=== PATIENT | male | born 1945 | race Caucasian/White ===

== ENCOUNTER 2019-03-21 09:32 | Day surgery (SDC) | payer BC ==
[2019-03-21] MEDS ORDERED: Depo-Medrol 40 MG/ML IM ONE (09:33)
[2019-03-21] MEDS ORDERED: Sodium Chloride 0.9(Preservative Free) 10 ML IJ ONE (09:33)
[2019-03-21] MEDS ORDERED: DIPRIVAN 200 MG/20 ML IV ONE (10:52)
[2019-03-21] MEDS ORDERED: Ketamine HCl 50 MG/ML ONE (10:52)
--- NOTE | 2019-03-21 12:32 | XRAY ---
Indication: Left L3-S1 transforaminal GIOVANI. Intraoperative fluoroscopy was provided for 29 seconds. 2 digital spot images submitted for interpretation demonstrates posterior needle tips projecting over the expected course of the left L4-L5 nerve roots. Small amount of contrast injected for needle tip placement. Correlate with intraoperative findings/report.
--- NOTE | 2019-03-21 12:36 | XRAY ---
29 seconds fluoroscopy time in surgery for left L4-S1 GIOVANI.
[2019-03-21] MEDS ORDERED: Lactated Ringers 1,000 ML IV ONE (13:26)
== END 2019-03-21 11:21 | disposition home or self-care (01) ==
LOC: SDC-PAIN 09:32
PROVIDERS: ATTEND Psychiatry & Neurology Pain Medicine
DX: M54.16 Radiculopathy, lumbar region (principal)
CPT/HCPCS: 64483; 64484; 72020; 77003; J1030; J2704; Q9966

== ENCOUNTER 2019-04-25 10:10 | Day surgery (SDC) | payer BC ==
[2019-04-25] MEDS ORDERED: Marcaine 0.5% SDV 10 ML IJ ONE (10:11)
[2019-04-25] MEDS ORDERED: Depo-Medrol 40 MG/ML IM ONE (10:11)
[2019-04-25] MEDS ORDERED: Lactated Ringers 1,000 ML IV ONE (11:16)
--- NOTE | 2019-04-25 15:17 | XRAY ---
17 sconds fluoroscopy time in surgery for bilateral SI joint injections.
--- NOTE | 2019-04-27 10:25 | XRAY ---
Indication: Bilateral SI joint injection. Intraoperative fluoroscopy was provided for 17 seconds. 4 digital spot images submitted for interpretation demonstrates posterior needle tip projecting over the inferior left and right SI joints. Correlate with intraoperative findings/report.
== END 2019-04-25 12:00 | disposition home or self-care (01) ==
LOC: SDC-PAIN 10:10
PROVIDERS: ATTEND Psychiatry & Neurology Pain Medicine
DX: M46.1 Sacroiliitis, not elsewhere classified (principal); Z79.01 Long term (current) use of anticoagulants; Z79.899 Other long term (current) drug therapy
CPT/HCPCS: 27096; 72202; 77002; 99100; J1030; G0260

== ENCOUNTER 2022-09-14 10:54 | Day surgery (SDC) | payer MEDICARE, OTHER ==
[~2022-09-14 10:54] MED LIST: ACETAZOLAMIDE 250 MG TABLET PO ONE; Ak-Dilate OPHTHALMIC*** 1.065 ML, Cyclogyl 1% OPHTH SOL 1.065 ML, GATIFLOXACIN 0.5% OPH... OP ONE; BETADINE 5% OPHTHALMIC 30 ML OP ONE; Lactated Ringers 1,000 ML IV SCH; NON-FORMULARY ITEM OP ONE; TETRACAINE 0.5% STERI-UNIT SOL OP ONE; Zofran 4 MG/2 ML VIAL IV PRN; cefUROXime sodium 0.005 GM in Sodium Chloride Flush 30 ML*** 0.5 ML IJ ONE
[2022-09-14] MEDS ORDERED: Lactated Ringers 1,000 ML IV ONE (11:01)
[2022-09-14 11:37] VITALS: O2SAT 97
[2022-09-14 11:37] LABS: INR 1.02 (0.8-3.0); PROTIME 10.8 SECONDS (9.4-12.5)
[2022-09-14] MEDS ORDERED: DIPRIVAN 200 MG/20 ML IV ONE (13:20)
[2022-09-14] MEDS ORDERED: Xylocaine-Mpf 2% 5 Ml Vial ONE (13:20)
[2022-09-14] MEDS ORDERED: Versed 2 MG/2 ML Injection ONE (13:20)
[2022-09-14 14:41] VITALS: BP 179/79; PULSE 70
[2022-09-14] MEDS ORDERED: Epinephrine Preservative Free 1 MG/ML ONE (15:26)
== END 2022-09-14 14:40 | disposition home or self-care (01) ==
LOC: SDC 10:54
PROVIDERS: ATTEND Ophthalmology
DX: H25.812 Combined forms of age-related cataract, left eye (principal); I10 Essential (primary) hypertension; Z79.01 Long term (current) use of anticoagulants; Z79.899 Other long term (current) drug therapy
CPT/HCPCS: 36415; 85610; 99100; C1780; J0171; J2250; J2704; A9270-GY

== ENCOUNTER 2023-04-13 07:00 | Day surgery (SDC) | payer MEDICARE, OTHER ==
[2023-04-13] MEDS ORDERED: Depo-Medrol 40 MG/ML IM ONE (07:01)
[2023-04-13] MEDS ORDERED: LIDOCAINE HCL 1% 50 MG/5 ML VL PF IJ ONE (07:01)
[2023-04-13] MEDS ORDERED: BUPIVACAINE 0.5% VIAL IJ ONE (07:01)
[2023-04-13] MEDS ORDERED: DIPRIVAN 200 MG/20 ML IV ONE (08:07)
--- NOTE | 2023-04-13 10:14 | XRAY ---
Indication: Lumbar GIOVANI. Intraoperative fluoroscopy provided for 12 seconds. 2 digital spot image submitted for interpretation demonstrates needle tip projecting just posterior to lumbosacral junction interspace. Small amount of contrast injected for needle tip placement. Correlate with intraoperative findings/report.
--- NOTE | 2023-04-13 10:54 | XRAY ---
12 seconds of fluoroscopy was used in surgery for a lumbar GIOVANI.
[2023-04-13] MEDS ORDERED: Lactated Ringers 1,000 ML IV ONE (13:33)
== END 2023-04-13 08:32 | disposition home or self-care (01) ==
LOC: SDC-PAIN 07:00
PROVIDERS: ATTEND Psychiatry & Neurology Pain Medicine
DX: M54.16 Radiculopathy, lumbar region (principal); Z79.899 Other long term (current) drug therapy
CPT/HCPCS: 62323; 72100; 77003; J1030; J2001; J2704; Q9966

== ENCOUNTER 2023-05-19 09:41 | Day surgery (SDC) | payer MEDICARE, OTHER ==
[2023-05-19] MEDS ORDERED: BUPIVACAINE 0.5% VIAL IJ ONE (09:42)
[2023-05-19] MEDS ORDERED: Depo-Medrol 40 MG/ML IM ONE (09:42)
[2023-05-19] MEDS ORDERED: DIPRIVAN 200 MG/20 ML IV ONE ×2 (10:39→10:50)
[2023-05-19] MEDS ORDERED: Lactated Ringers 1,000 ML IV ONE (11:20)
--- NOTE | 2023-05-19 11:37 | XRAY ---
Indication: Bilateral SI joint injection. Intraoperative fluoroscopy provided for 19 seconds. 4 digital spot images submitted for interpretation demonstrates posterior needle tip projecting over the left and right SI joint. Correlate with intraoperative findings/report.
--- NOTE | 2023-05-19 12:40 | XRAY ---
19 seconds of fluoroscopy was used in surgery for a bilateral sacroiliac joint injection.
== END 2023-05-19 11:07 | disposition home or self-care (01) ==
LOC: SDC-PAIN 09:41
PROVIDERS: ATTEND Psychiatry & Neurology Pain Medicine
DX: M46.1 Sacroiliitis, not elsewhere classified (principal); Z79.899 Other long term (current) drug therapy
CPT/HCPCS: 27096; 72202; 77002; G0260; 99100; J1030; J2704

== ENCOUNTER 2023-08-25 09:47 | Day surgery (SDC) | payer MEDICARE, OTHER ==
[2023-08-25] MEDS ORDERED: LIDOCAINE HCL 2% 100 MG/5 ML IJ ONE (09:48)
[2023-08-25] MEDS ORDERED: Depo-Medrol 40 MG/ML IM ONE (09:48)
[2023-08-25] MEDS ORDERED: DIPRIVAN 200 MG/20 ML IV ONE (10:56)
--- NOTE | 2023-08-25 12:33 | XRAY ---
Indication: Bilateral L4-S1 MBB. Intraoperative fluoroscopy provided for 11 seconds. Single digital spot image submitted for interpretation demonstrates posterior needle tips projecting over the expected left and right L4-S1 nerve roots. Correlate with intraoperative findings/report.
[2023-08-25] MEDS ORDERED: Lactated Ringers 1,000 ML IV ONE (15:24)
--- NOTE | 2023-08-26 10:59 | XRAY ---
11 seconds of fluoroscopy was used in surgery for a bilateral L4-S1 MBB.
== END 2023-08-25 11:24 | disposition home or self-care (01) ==
LOC: SDC-PAIN 09:47
PROVIDERS: ATTEND Psychiatry & Neurology Pain Medicine
DX: M47.816 Spondylosis without myelopathy or radiculopathy, lumbar region (principal)
CPT/HCPCS: 64493; 64494; 72020; 77002; J1030; J2704

== ENCOUNTER 2023-09-08 09:08 | Day surgery (SDC) | payer MEDICARE, OTHER ==
[2023-09-08] MEDS ORDERED: Decadron 4 MG INJ IV ONE (09:09)
[2023-09-08] MEDS ORDERED: Sodium Chloride 0.9(Preservative Free) 10 ML IJ ONE (09:09)
[2023-09-08] MEDS ORDERED: DIPRIVAN 200 MG/20 ML IV ONE (11:02)
[2023-09-08] MEDS ORDERED: MORPHINE SULFATE 2 MG INJ ONE (11:28)
--- NOTE | 2023-09-08 12:04 | XRAY ---
Indication: Left L4-S1 transforaminal GIOVANI. Intraoperative fluoroscopy provided for 45 seconds. 6 digital spot image submitted for interpretation demonstrates posterior needle tips projecting over the expected left L4 and L5 nerve roots. Small amount of contrast injected for needle tip placement. Correlate with intraoperative findings/report.
--- NOTE | 2023-09-08 13:06 | XRAY ---
45 seconds of fluoroscopy was used in surgery for a left L4-S1 transforaminal GIOVANI.
[2023-09-08] MEDS ORDERED: Lactated Ringers 1,000 ML IV ONE (16:19)
== END 2023-09-08 11:50 | disposition home or self-care (01) ==
LOC: SDC-PAIN 09:08
PROVIDERS: ATTEND Psychiatry & Neurology Pain Medicine
DX: M54.16 Radiculopathy, lumbar region (principal); Z79.899 Other long term (current) drug therapy
CPT/HCPCS: 64483; 64484; 72100; 77003; J1100; J2270; J2704; Q9966

== ENCOUNTER 2023-12-14 11:59 | Day surgery (SDC) | payer MEDICARE, OTHER ==
[2023-12-14] MEDS ORDERED: BUPIVACAINE 0.5% VIAL IJ ONE (12:00)
[2023-12-14] MEDS ORDERED: Depo-Medrol 40 MG/ML IM ONE (12:00)
[2023-12-14] MEDS ORDERED: DIPRIVAN 200 MG/20 ML IV ONE (13:49)
[2023-12-14] MEDS ORDERED: Lactated Ringers 1,000 ML IV ONE (14:20)
--- NOTE | 2023-12-14 14:42 | XRAY ---
Indication: Bilateral L4-S1 MBB. Intraoperative fluoroscopy provided for 9 seconds. Single digital spot images submitted for interpretation demonstrates posterior needle tips projecting over the expected left and right L4-S1 nerve roots. Correlate with intraoperative findings/report.
--- NOTE | 2023-12-14 15:10 | XRAY ---
9 seconds of fluoroscopy was used in surgery for a bilateral L4-S1 MBB.
== END 2023-12-14 14:15 | disposition home or self-care (01) ==
LOC: SDC-PAIN 11:59
PROVIDERS: ATTEND Psychiatry & Neurology Pain Medicine
DX: M47.816 Spondylosis without myelopathy or radiculopathy, lumbar region (principal)
CPT/HCPCS: 64493; 64494; 72020; 77002; J1030; J2704

== ENCOUNTER 2024-01-18 08:56 | Day surgery (SDC) | payer MEDICARE, OTHER ==
[2024-01-18] MEDS ORDERED: BUPIVACAINE 0.5% VIAL IJ ONE (08:57)
[2024-01-18] MEDS ORDERED: LIDOCAINE HCL 1% 50 MG/5 ML VL PF IJ ONE (08:57)
[2024-01-18] MEDS ORDERED: Depo-Medrol 40 MG/ML IM ONE (08:57)
[2024-01-18] MEDS ORDERED: Lactated Ringers 1,000 ML IV ONE (10:58)
[2024-01-18] MEDS ORDERED: DIPRIVAN 200 MG/20 ML IV ONE (11:13)
--- NOTE | 2024-01-18 12:57 | XRAY ---
Indication: Right L4-S1 RFA. Intraoperative fluoroscopy provided for 22 seconds. 4 digital spot image submitted for interpretation demonstrates posterior needle tips projecting over the expected right L4-S1 nerve roots. Correlate with intraoperative findings/report.
--- NOTE | 2024-01-18 13:21 | XRAY ---
22 seconds of fluoroscopy was used in surgery for a right L4-S1 RFA.
== END 2024-01-18 11:47 | disposition home or self-care (01) ==
LOC: SDC-PAIN 08:56
PROVIDERS: ATTEND Psychiatry & Neurology Pain Medicine
DX: M47.816 Spondylosis without myelopathy or radiculopathy, lumbar region (principal)
CPT/HCPCS: 64635; 64636; 72100; 77002; 99100; J1010; J2001; J2704

== ENCOUNTER 2024-02-01 08:55 | Day surgery (SDC) | payer MEDICARE, OTHER ==
[2024-02-01] MEDS ORDERED: BUPIVACAINE 0.5% VIAL IJ ONE (08:56)
[2024-02-01] MEDS ORDERED: XYLOCAINE-MPF 1% 5ML SDV IJ ONE (08:56)
[2024-02-01] MEDS ORDERED: Depo-Medrol 40 MG/ML IM ONE (08:56)
[2024-02-01] MEDS ORDERED: DIPRIVAN 200 MG/20 ML IV ONE (09:57)
[2024-02-01] MEDS ORDERED: Lactated Ringers 1,000 ML IV ONE (10:11)
--- NOTE | 2024-02-01 11:39 | XRAY ---
Indication: Left L4-S1 RFA. Intraoperative fluoroscopy provided for 20 seconds. 3 digital spot image submitted for interpretation demonstrates posterior needle tips projecting over the expected left L4-S1 nerve roots. Correlate with intraoperative findings/report.
--- NOTE | 2024-02-01 12:48 | XRAY ---
20 seconds of fluoroscopy was used in surgery for a left L4-S1 RFA.
== END 2024-02-01 10:25 | disposition home or self-care (01) ==
LOC: SDC-PAIN 08:55
PROVIDERS: ATTEND Psychiatry & Neurology Pain Medicine
DX: M47.816 Spondylosis without myelopathy or radiculopathy, lumbar region (principal)
CPT/HCPCS: 64635; 64636; 72100; 77002; 99100; J1010; J2704

== ENCOUNTER 2024-06-07 14:53 | Day surgery (SDC) | payer MEDICARE, OTHER ==
[2024-06-07] MEDS ORDERED: LIDOCAINE HCL 1% 50 MG/5 ML VL PF IJ ONE (14:54)
[2024-06-07] MEDS ORDERED: Depo-Medrol 40 MG/ML IM ONE (14:54)
[2024-06-07] MEDS ORDERED: BUPIVACAINE 0.5% VIAL IJ ONE (14:54)
--- NOTE | 2024-06-07 20:36 | XRAY ---
Indication: Bilateral SI joint injection. Intraoperative fluoroscopy provided for 23 seconds. 2 digital spot image submitted for interpretation demonstrates posterior needle tips projecting over the left and right SI joints. Small amount of contrast injected for needle tip placement. Correlate with intraoperative findings/report.
--- NOTE | 2024-06-11 12:49 | XRAY ---
23 seconds of fluoroscopy was used in surgery for a bilateral sacroiliac joint injection.
== END 2024-06-07 17:25 | disposition home or self-care (01) ==
LOC: SDC-PAIN 14:53
PROVIDERS: ATTEND Psychiatry & Neurology Pain Medicine
DX: M46.1 Sacroiliitis, not elsewhere classified (principal); M53.3 Sacrococcygeal disorders, not elsewhere classified
CPT/HCPCS: 27096; 72202; 77002; G0260; J2001; Q9966

== ENCOUNTER 2024-08-15 13:20 | Day surgery (SDC) | payer MEDICARE, OTHER ==
[2024-08-15] MEDS ORDERED: Depo-Medrol 40 MG/ML IM ONE (13:21)
[2024-08-15] MEDS ORDERED: Sodium Chloride 0.9(Preservative Free) 10 ML IJ ONE (13:21)
[2024-08-15] MEDS ORDERED: DIPRIVAN 200 MG/20 ML IV ONE (15:03)
--- NOTE | 2024-08-15 16:36 | XRAY ---
Indication: Caudal GIOVANI Intraoperative fluoroscopy provided for 17 seconds. 3 digital spot image submitted for interpretation demonstrates caudal needle tip projecting mid sacrum. Small amount of contrast injected for needle tip placement. Correlate with intraoperative findings/report.
--- NOTE | 2024-08-15 17:11 | XRAY ---
17 seconds of fluoroscopy was used in surgery for a caudal GIOVANI.
== END 2024-08-15 15:36 | disposition home or self-care (01) ==
LOC: SDC-PAIN 13:20
PROVIDERS: ATTEND Psychiatry & Neurology Pain Medicine
DX: M54.16 Radiculopathy, lumbar region (principal)
CPT/HCPCS: 62323; 72220; 77003; J2704; Q9966